=== PATIENT | female | born 1995 | race Caucasian/White ===

== ENCOUNTER 2016-09-25 23:34 | Emergency (ER) | payer OTHER ==
--- NOTE | 2016-10-12 16:41 | ER ---
ADMIT: 09/25/2016 RM/LOC: ER [facility] MR#: [id number] [address] [id number] EMILY LAWTON [address] [place] [address] *CELL Emergency Room Report SEX: F AGE: 21 : 1995 DATE: 09/25/2016 A 21-year-old, [place], now comes in complaining of foot pain. She has been able to carry on her normal activities including painting her kitchen until this evening when she became concerned. She is more so concerned about getting a note for work. See T-sheet for history and physical. She is given Toradol in the Emergency Department, prescription for Toradol. She was instructed to follow up if not better in 2 or 3 days. DIAGNOSIS: Foot pain, strain. Luis Gamez MD/ kevin JOB #: [id number] CC: Colin Salazar MD, Attending Physician
== END 2016-09-26 01:16 | disposition home or self-care (01) ==
LOC: ER 23:34
DX: S96.911A Strain of unspecified muscle and tendon at ankle and foot level, right foot, initial encounter (principal); X58.XXXA Exposure to other specified factors, initial encounter; Y93.01 Activity, walking, marching and hiking; Y92.828 Other wilderness area as the place of occurrence of the external cause